=== PATIENT | male | born 1990 | race Caucasian/White ===

== ENCOUNTER 2020-10-06 14:14 | Emergency (ER) | payer OTHER ==
[~2020-10-06] VITALS: Ht 180.3 cm; Wt 78.0 kg
[2020-10-06 14:14] VITALS: BP 133/60
[2020-10-06] MEDS ORDERED: AUGMENTIN 875-1 EACH PO (16:05)
== END 2020-10-06 16:08 | disposition home or self-care (01) ==
LOC: ER 14:14
DX: S61.223A Laceration with foreign body of left middle finger without damage to nail, initial encounter (principal); W45.8XXA Other foreign body or object entering through skin, initial encounter; Y93.89 Activity, other specified; Y92.89 Other specified places as the place of occurrence of the external cause; Y99.9 Unspecified external cause status